=== PATIENT | male | born 1955 | race Caucasian/White ===

== ENCOUNTER 2021-06-24 09:48 | Outpatient (REF) | payer MEDICARE, OTHER, SELFPAY ==
--- NOTE | ~2021-06-24 | US_ITS ---
EXAMINATION: US ABDOMEN COMPLETE CLINICAL INFORMATION: Chronic hep C, fatty liver. COMPARISON: Ultrasound abdomen complete 02/22/2018 and 02/20/2015. CT abdomen with and without contrast 04/06/2012. TECHNIQUE: Real-time imaging of the abdominal viscera. FINDINGS: PANCREAS: Not visualized due to bowel gas. ABDOMINAL AORTA: The proximal, mid, and distal segments are normal in caliber. INFERIOR VENA CAVA: Visualized portions are normal. LIVER: The left lobe of the liver is not well visualized. Liver echotexture is increased. The contour of the liver is slightly irregular suggestive of mild cirrhosis. No focal liver lesion or biliary duct dilatation is seen. GALLBLADDER: Surgically absent. COMMON BILE DUCT: Normal in caliber measuring 0.3 cm in diameter. RIGHT KIDNEY: There is a 6 x 7 mm cyst in the upper pole. No hydronephrosis or renal calculi. The kidney measures 13.7 cm in maximum dimension. LEFT KIDNEY: There is a 5 x 7 mm cyst in the upper pole. No hydronephrosis or renal calculi. The kidney measures 12.7 cm in maximum dimension. SPLEEN: Normal. The spleen measures 11.3 cm in maximum dimension. FREE FLUID: None. US/US abdomen complete IMPRESSION: Question mild cirrhotic changes of the liver. The left lobe is not well visualized. No focal liver lesion seen. Small bilateral renal cysts. Nonvisualization of the pancreas.
== END 2021-06-24 09:49 | disposition home or self-care (01) ==
LOC: HO.HMGCX 09:48
PROVIDERS: PCP Internal Medicine; Visit Provider Internal Medicine
DX: B18.2 Chronic viral hepatitis C (principal); K76.0 Fatty (change of) liver, not elsewhere classified; R74.8 Abnormal levels of other serum enzymes
CPT/HCPCS: 76700

== ENCOUNTER 2021-07-17 07:22 | Day surgery (SDC) | payer MEDICARE, OTHER, SELFPAY ==
[2021-07-11 14:55] VITALS: BMI 30.2
[2021-07-17 07:38] VITALS: BP 122/88; PULSE 76; RESP 18; TEMP 36.8; O2SAT 96
--- NOTE | 2021-07-17 08:00 | P.CONAN_ITS ---
HPI - Anesthesia Eval Consult details Narrative: 65 yo male patient for EGD, Colonoscopy [facility] Past Medical History Medical History (Updated 07/11/21 @ 14:54 by Katlyn Jorge RN) Arthritis Back pain COVID-19 vaccine series completed Hepatitis C HTN (hypertension) Status post insertion of nerve stimulator Family History Family history of problems with anesthesia: No Surgical History Surgical History (Updated 07/11/21 @ 14:03 by Katlyn Jorge RN) H/O colonoscopy History of back surgery History of esophagogastroduodenoscopy (EGD) History of hydrocelectomy History of liver biopsy Hx of appendectomy Hx of cholecystectomy Hx of hernia repair History of Problems with Anesthesia: No Social History Social History Are you a primary caretaker grounds to a significant other at home: No Do you presently have visiting nurse or other home services: No Patient Tobacco Use Status: Never used Tobacco Use of substances other than those prescribed or required for medical reasons: Yes Substance Use Type Other:: medical marijuana-edibles Have you been hit, kicked, punched, or otherwise hurt by someone within the past year? If so, by whom?: No Are you DNR?: No Advance Directives: No Advance Directives Information Provided: Yes Advance Directives on File: No Recently lost weight without trying: No Eating poorly because of decreased appetite: No Nutrition Risks: No Nutritional Risk Poor oral hygiene: No (upper partial) Meds Allergies Allergy/AdvReac Type Severity Reaction Status Date / Time topiramate [From Topamax] Allergy Intermediate mood Verified 07/11/21 14:04 disturbance Active Medications: Current Medications Sodium Biphosphate/Sodium Phosphate (Sodium Phosphate,Ulster-Dibasic 133 Ml Enema) 133 ml DE ONCE PRN PRN Reason: Poor Colonoscopy Prep Results Home Medications Medication Instructions Recorded Confirmed Last Taken Type acetaminophen 650 mg 1,300 mg PO Q12H PRN 07/11/21 07/11/21 Unknown History tablet,extended release amlodipine 10 mg tablet 1 tab PO DAILY 07/11/21 07/11/21 Unknown History lisinopril 20 2 tab PO DAILY 07/11/21 07/11/21 Unknown History mg-hydrochlorothiazide 12.5 mg tablet Exam Exam Date and Time: July 17, 2021 0800 Height,Weight and Vital Signs: Height 5 ft 11.5 in Weight 99.79 kg Last Vital Signs Temp 98.2 F 07/17/21 07:38 Pulse 76 07/17/21 07:38 Resp 18 07/17/21 07:38 BP 122/88 07/17/21 07:38 Pulse Ox 96 07/17/21 07:38 Airway Mallampati Class: II TM Dist: >3cm Neck ROM: Full (but sore) Partial: Upper Loose/Missing/Broken Teeth: No (No broken) Heart: RRR. HR usually runs 40s to low 50s Lungs: CTAB Assessment and Plan Assessment Anesthesia Assessment: Anesthesia Plan Discussed and Chart Reviewed Final Anesthetic Review Family History of Problems with Anesthesia: No History of Problems with Anesthesia: No NPO: Yes ASA Class: II Final Preanesthetic Review: No Changes in Pt Med Stat, Meds/Allgs Chart Reviewed, Consent Obtained/Reviewed and Anes Risks/Benef Reviewed Patient Risk: Low Procedure Risk: Low Assessment/Block/Sedation in SS: Assess/Block/Sedation-SS Anesthetic Plan Anesthetic Plan: MAC: Disposition: Standard PACU
[2021-07-17] MEDS: Lactated Ringers 1,000 ML 100 ML IVCONT (08:21)
[2021-07-17 09:40] VITALS: BP 87/50; PULSE 60; RESP 12; TEMP 36.2; O2SAT 94
--- NOTE | 2021-07-17 09:41 | PM.OP ---
Brief Operative Note Date of Service: 07/17/21 Pre-op diagnosis: GERD, Screening Post-op diagnosis: other (Hiatal hernia, R/O Erickson's Diverticulosis) Procedure: EGD with biopsies, Colonoscopy to the cecum and TI Surgeon: Dirk Stovall Anesthesia: MAC Was an County [employer] used for this Procedure?: No Estimated blood loss (mL): 2.0 Pathology: other (A. Esophagus 39-40cm) Condition: stable Disposition: PACU
[2021-07-17 09:55] VITALS: BP 120/72; PULSE 72; RESP 16; TEMP 36.2; O2SAT 98
--- NOTE | 2021-07-17 10:36 | OP_ITS ---
SURGEON: Dirk Stovall MD INDICATIONS: The patient presents for evaluation of gastroesophageal reflux and colorectal cancer screening. Full consent was obtained from him for this, including risks of bleeding and perforation. PREOPERATIVE DIAGNOSIS: POSTOPERATIVE DIAGNOSIS: PROCEDURE PERFORMED: Esophagogastroduodenoscopy with biopsies, and colonoscopy to the cecum and terminal ileum. ESTIMATED BLOOD LOSS: COMPLICATIONS: ANESTHESIA: Monitored anesthesia care. ASSISTANTS: SPECIMENS: PREOPERATIVE DIAGNOSES: Gastroesophageal reflux, colorectal cancer screening. POSTOPERATIVE DIAGNOSES: Gastroesophageal reflux, colorectal cancer screening, hiatal hernia, rule out Erickson's esophagus, diverticulosis, and internal hemorrhoids. DESCRIPTION OF PROCEDURE: The patient was placed in the left lateral decubitus position. The Olympus video gastroscope was passed in the posterior oropharynx and upper esophagus under direct vision. The scope was passed slowly into the distal esophagus. The gastroesophageal junction appeared at 40 cm. Extending from this to 39 cm were segments of possible Erickson mucosa. There was no evidence of any inflammation, ulceration, nor mass. The scope entered into the stomach. There was a small hiatal hernia. The scope was advanced to the pylorus and duodenum was cannulated to the descending portion. The duodenum including the bulb appeared normal without mass or ulceration. Scope was withdrawn back in the stomach. The gastric antrum and body appeared normal with good peristalsis. The scope was retroflexed visualizing the proximal stomach carefully, which appeared normal, without any sign of mass or ulceration. The scope was straightened and withdrawn back into the esophagus. Multiple biopsies were obtained between 39 and 40 cm. Proximal to 39 cm, the esophageal mucosa appeared normal. At the very upper esophagus was what appeared to be a patch of gastric heterotopia. The scope was withdrawn from the patient. He was turned around for the colonoscopy. The digital rectal exam revealed no abnormalities. The Olympus video pediatric colonoscope was entered into the rectum and advanced easily to the cecum. Once in the cecum I did identify normal-appearing cecal pouch with appendiceal orifice and a normal-appearing ileocecal valve. The terminal ileum was cannulated and appeared normal. The scope withdrawn back into the colon. The entire cecum and ileocecal valve appeared normal. The scope was slowly withdrawn assessing all mucosal surfaces carefully. Preparation was excellent. I did not visualize any sign of polyps, colitis, or angiodysplasia. There was a mild amount of sigmoid diverticulosis. In the rectum, scope was retroflexed visualizing small internal hemorrhoids, but no other pathology. The rectal mucosa appeared normal. Scope was straightened and withdrawn from the patient. He tolerated the procedures well and was returned to recovery area in stable condition. IMPRESSION: 1. Hiatal hernia, rule out Erickson's esophagus. 2. Diverticulosis. 3. Internal hemorrhoids. PLAN: The results of the biopsies will be checked. If there is evidence of Erickson's esophagus without dysplasia, I would recommend a repeat upper endoscopy in 3 years. He is presently not using any medication for reflux as he is asymptomatic. I would recommend a repeat colonoscopy in 10 years for further screening as well. He was advised not to use any aspirin and NSAIDs for 1 week. If he does develop any symptomatic reflux, I would then recommend starting him on a PPI. MD FELIZ Mcnair/NANCY / [id number] MTDD
== END 2021-07-17 10:37 | disposition home or self-care (01) ==
PROVIDERS: PCP Internal Medicine; Visit Provider Internal Medicine
PROC: (CPT 43239; principal; 2021-07-17 08:30)
DX: Z12.11 Encounter for screening for malignant neoplasm of colon (principal); K57.30 Diverticulosis of large intestine without perforation or abscess without bleeding; K64.8 Other hemorrhoids; K21.9 Gastro-esophageal reflux disease without esophagitis; K22.70 Barrett's esophagus without dysplasia; K44.9 Diaphragmatic hernia without obstruction or gangrene; I10 Essential (primary) hypertension; B18.2 Chronic viral hepatitis C; K76.0 Fatty (change of) liver, not elsewhere classified; R74.8 Abnormal levels of other serum enzymes; E80.4 Gilbert syndrome; M54.9 Dorsalgia, unspecified; M21.379 Foot drop, unspecified foot; Z79.899 Other long term (current) drug therapy; Z96.82 Presence of neurostimulator; Z90.49 Acquired absence of other specified parts of digestive tract
CPT/HCPCS: 43239; G0121; 88305; J2250

== ENCOUNTER 2023-05-26 12:34 | Outpatient (REF) | payer MEDICARE, BC, SELFPAY | END 2023-05-26 12:35 | disposition home or self-care (01) | LOC: HO.HOSX 12:34 | PROVIDERS: Visit Provider Orthopaedic Surgery | DX: M25.512 Pain in left shoulder (principal) | CPT/HCPCS: 99202 ==

== ENCOUNTER 2023-05-26 12:47 | Outpatient (AMB) | payer MEDICARE, BC, SELFPAY ==
--- NOTE | 2023-05-26 13:01 | MHC.OFFVIS ---
Intake Vital Signs 05/26/23 13:03 Height 6 ft 1 in Weight 210 lb BMI 27.7 Intake Visit Reasons: MEDICAL COORDINATOR PESTICIDE USE- LT shoulder OA Intake Note: Chester is a 67 year old Right handed male who presents as a new patient with Left shoulder pain as well as intermittent numbness which radiates down his left arm. The patient has had 2 low back surgeries in the past performed by Dr. Erika Simmons. He has not able to get an MRI because of a nerve stimulator in his back. He recently had a CT scan of his low back. He has not been seen by a back specialist since the CT scan. The patient denies any weakness in his left shoulder. The patient's states that at this point his back pain is much more troubling to him than is his left shoulder discomfort. Allergies topiramate [From Topamax] Allergy (Intermediate, Verified 05/26/23 13:06) mood disturbance Medication List - Last Reconciled 05/26/23 by Chaz Craft MD acetaminophen ER 1,300 mg PO Q12H PRN amlodipine 1 tab PO DAILY lisinopril-hydrochlorothiazide 20-12.5 mg 2 tabs PO DAILY PFSH Medical History Arthritis COVID-19 vaccine series completed HTN (hypertension) Back pain Hepatitis C Surgical History History of hydrocelectomy History of back surgery Hx of hernia repair Hx of appendectomy History of esophagogastroduodenoscopy (EGD) H/O colonoscopy Status post insertion of nerve stimulator History of liver biopsy Hx of cholecystectomy Social History Are you a primary senior resident care director to a significant other at home: No Do you presently have visiting nurse or other home services: No Patient Tobacco Use Status: Never used Tobacco Physical Exam Vital Signs: BMI result Body Mass Index 27.7 Const Other: Well-nourished well-developed very friendly male awake alert and oriented x3 in no acute distress Extrem Other: Bilateral upper extremity examination shows good capillary refill, no skin lesions noted, normal sensation light touch Left shoulder examination shows full range of motion when compared to his right shoulder, 4+ out of 5 strength with supraspinatus testing, positive impingement signs, tenderness over his acromioclavicular joint, no instability Results Reviewed Results Reviewed: X-ray report of the patient's bilateral shoulder show acromioclavicular joint narrowing, no acute bony abnormalities Assessment & Plan Assessment & Plan (1) Left shoulder pain: Code(s): M25.512 - Pain in left shoulder Plan Mr. Friedman presents with intermittent left shoulder pain due to impingement syndrome as well as acromioclavicular joint arthritis. I had a lengthy discussion with the patient regarding the treatment options. At this point the patient's shoulder symptoms are tolerable to him. He will follow up with a back specialist for further evaluation of his low back pain and CT scan results. He will follow up with me on an as-needed basis should his symptoms worsen in any way. Feel free to call me at any time should questions regarding his orthopedic management arise. Thank you very much for asking me to see this very friendly gentleman. I spent 22 minutes in reviewing the patient's records and imaging studies, seeing the patient and documenting in the medical record. Coding Level of Care Code New Pt Level 2 (66294) Diagnoses Left shoulder pain M25.512
[2023-05-26 13:03] VITALS: BMI 27.7
== END 2023-05-26 13:31 | disposition home or self-care (01) ==
PROVIDERS: PCP Internal Medicine; Visit Provider Orthopaedic Surgery
DX: M25.512 Pain in left shoulder (principal)
CPT/HCPCS: 99202